=== PATIENT | female | born 1975 | race Caucasian/White ===

== ENCOUNTER → 2018-10-11 | Outpatient (CLI) | payer MEDICAID ==
[2018-10-11 14:42] LABS: EOS # 0.1 (0.04-0.40); EOS % 0.9 % (1.0-5.0); HEMATOCRIT 39.1 % (37.0-47.0); HEMOGLOBIN 12.8 g/dL (12.5-16.0); MEAN CELL VOLUME 96 fl (78-100); MEAN CORPUSCULAR HEMOGLOBIN 31 pg (27-31); MEAN CORPUSCULAR HGB CONC 33 g/dL (33-37); MEAN PLATELET VOLUME 10.9 fl (7.4-10.4); MONO # 0.4 (0.20-0.80); NEU # 3.3 (1.40-6.50); PLATELET COUNT 241 K/mm3 (130-400); RED BLOOD COUNT 4.08 M/mm3 (4.10-5.30); RED CELL DISTRIBUTION WIDTH 13.9 % (11.5-14.5); WHITE BLOOD COUNT 5.8 K/mm3 (4.8-10.8)
[2018-10-11 14:57] LABS: ALBUMIN 4.4 g/dL (3.5-5.0); CALCIUM 9.4 mg/dL (8.4-10.2); POTASSIUM 4.3 mmol/L (3.6-5.0); TOTAL BILIRUBIN 0.5 mg/dL (0.2-1.3); TOTAL PROTEIN 8.7 g/dL (6.3-8.2)
== END ==
LOC: LAB 14:28
PROVIDERS: Family Medicine
DX: N18.9 Chronic kidney disease, unspecified (principal); D63.1 Anemia in chronic kidney disease; E78.5 Hyperlipidemia, unspecified; E03.9 Hypothyroidism, unspecified

== ENCOUNTER → 2018-10-21 | Outpatient (CLI) | payer MEDICAID ==
[2018-11-02 09:50] LABS: CD4 T-CELL COUNT 10.9 % (29.0-59.0)
== END ==
LOC: LAB 09:50
PROVIDERS: Internal Medicine Infectious Disease
DX: B20 Human immunodeficiency virus [HIV] disease (principal)

== ENCOUNTER → 2018-10-27 | Outpatient (CLI) | payer MEDICAID ==
[2018-10-27 10:29] LABS: EOS # 0.1 (0.04-0.40); EOS % 0.9 % (1.0-5.0); HEMOGLOBIN 11.9 g/dL (12.5-16.0); LYMPH# 1.6 (1.50-4.00); MEAN CELL VOLUME 99 fl (78-100); MEAN CORPUSCULAR HEMOGLOBIN 32 pg (27-31); MEAN CORPUSCULAR HGB CONC 32 g/dL (33-37); MEAN PLATELET VOLUME 10.4 fl (7.4-10.4); MONO # 0.5 (0.20-0.80); NEU # 3.1 (1.40-6.50); PLATELET COUNT 227 K/mm3 (130-400); RED BLOOD COUNT 3.74 M/mm3 (4.10-5.30); RED CELL DISTRIBUTION WIDTH 14.4 % (11.5-14.5); WHITE BLOOD COUNT 5.3 K/mm3 (4.8-10.8)
[2018-10-27 11:20] LABS: CALCIUM 9.4 mg/dL (8.4-10.2); POTASSIUM 4.3 mmol/L (3.6-5.0)
[2018-10-27 11:55] LABS: URINE APPEARANCE HAZY; URINE BILIRUBIN NEGATIVE (NEGATIVE); URINE BLOOD NEGATIVE (NEGATIVE); URINE COLOR YELLOW; URINE GLUCOSE NEGATIVE (NEGATIVE); URINE KETONE NEGATIVE (NEGATIVE); URINE LEUKOCYTE ESTERASE NEGATIVE (NEGATIVE); URINE MUCUS PRESENT (NOT PRESENT); URINE NITRATE NEGATIVE (NEGATIVE); URINE PROTEIN(semi-quant) TRACE mg/dL (NEGATIVE); URINE UROBILINOGEN NORMAL (NORMAL)
[2018-10-28 02:35] LABS: CREATININE OTHER SOURCE 211 mg/dL (())
== END ==
LOC: LAB 10:13
PROVIDERS: Internal Medicine
DX: N18.9 Chronic kidney disease, unspecified (principal); E66.9 Obesity, unspecified

== ENCOUNTER → 2018-10-28 | Outpatient (CLI) | payer MEDICAID | LOC: RAD 10:13 | DX: N18.9 Chronic kidney disease, unspecified (principal) ==

== ENCOUNTER → 2018-11-28 | Outpatient (CLI) | payer MEDICAID ==
[2018-11-28 12:45] LABS: CALCIUM 9.2 mg/dL (8.4-10.2); POTASSIUM 4.1 mmol/L (3.6-5.0)
[2018-11-28 23:17] LABS: CREATININE OTHER SOURCE 37 mg/dL (())
== END ==
LOC: LAB 10:44
PROVIDERS: Internal Medicine
DX: I12.9 Hypertensive chronic kidney disease with stage 1 through stage 4 chronic kidney disease, or unspecified chronic kidney disease (principal); F17.200 Nicotine dependence, unspecified, uncomplicated; N18.3 Chronic kidney disease, stage 3 (moderate); Z21 Asymptomatic human immunodeficiency virus [HIV] infection status

== ENCOUNTER → 2019-01-09 | Outpatient (CLI) | payer MEDICAID ==
[2019-01-10 14:03] LABS: CD4 T-CELL COUNT 11.3 % (29.0-59.0)
== END ==
LOC: LAB 10:31
PROVIDERS: Internal Medicine Infectious Disease
DX: B20 Human immunodeficiency virus [HIV] disease (principal)

== ENCOUNTER → 2019-01-11 | Outpatient (CLI) | payer MEDICAID | LOC: LAB 11:34 | DX: B20 Human immunodeficiency virus [HIV] disease (principal) ==

== ENCOUNTER → 2019-02-08 | Outpatient (CLI) | payer MEDICARE, MEDICAID ==
[2019-02-08 09:48] LABS: BASO # 0.1 (0.02-0.10); EOS # 0.1 (0.04-0.40); EOS % 1.4 % (1.0-5.0); HEMATOCRIT 37.8 % (37.0-47.0); LYMPH# 1.9 (1.50-4.00); MEAN CELL VOLUME 104 fl (78-100); MEAN CORPUSCULAR HEMOGLOBIN 33 pg (27-31); MEAN CORPUSCULAR HGB CONC 32 g/dL (33-37); MEAN PLATELET VOLUME 10.8 fl (7.4-10.4); MONO # 0.5 (0.20-0.80); NEU # 3.2 (1.40-6.50); PLATELET COUNT 223 K/mm3 (130-400); RED BLOOD COUNT 3.63 M/mm3 (4.10-5.30); RED CELL DISTRIBUTION WIDTH 13.6 % (11.5-14.5); WHITE BLOOD COUNT 5.8 K/mm3 (4.8-10.8)
[2019-02-08 10:01] LABS: ALBUMIN 4.1 g/dL (3.5-5.0); CALCIUM 9.2 mg/dL (8.4-10.2); POTASSIUM 3.9 mmol/L (3.6-5.0); TOTAL BILIRUBIN 0.5 mg/dL (0.2-1.3); TOTAL PROTEIN 8.1 g/dL (6.3-8.2)
== END ==
LOC: LAB 09:36
PROVIDERS: Family Medicine
DX: D63.1 Anemia in chronic kidney disease (principal); R73.9 Hyperglycemia, unspecified; E78.5 Hyperlipidemia, unspecified; E07.9 Disorder of thyroid, unspecified

== ENCOUNTER → 2019-03-13 | Outpatient (CLI) | payer MEDICARE, MEDICAID ==
[2019-03-13 14:46] LABS: URINE APPEARANCE CLOUDY; URINE BILIRUBIN NEGATIVE (NEGATIVE); URINE BLOOD NEGATIVE (NEGATIVE); URINE COLOR YELLOW; URINE GLUCOSE NEGATIVE (NEGATIVE); URINE KETONE NEGATIVE (NEGATIVE); URINE LEUKOCYTE ESTERASE NEGATIVE (NEGATIVE); URINE NITRATE NEGATIVE (NEGATIVE); URINE PROTEIN(semi-quant) TRACE mg/dL (NEGATIVE); URINE UROBILINOGEN NORMAL (NORMAL)
== END ==
LOC: LAB 14:16
PROVIDERS: Nurse Practitioner
DX: R30.0 Dysuria (principal)

== ENCOUNTER → 2019-03-17 | Outpatient (CLI) | payer MEDICARE, MEDICAID | LOC: LAB 16:05 | DX: N39.0 Urinary tract infection, site not specified (principal); R10.9 Unspecified abdominal pain ==

== ENCOUNTER → 2019-05-11 | Outpatient (CLI) | payer MEDICARE, MEDICAID | LOC: RAD 09:45 | DX: M54.5 Low back pain (principal); R10.9 Unspecified abdominal pain; N39.0 Urinary tract infection, site not specified ==

== ENCOUNTER → 2019-05-22 | Outpatient (CLI) | payer MEDICARE, MEDICAID ==
[2019-05-22 14:40] LABS: HEMATOCRIT 37.3 % (37.0-47.0); HEMOGLOBIN 12.2 g/dL (12.5-16.0); MEAN PLATELET VOLUME 10.4 fl (7.4-10.4); RED BLOOD COUNT 3.65 M/mm3 (4.10-5.30); RED CELL DISTRIBUTION WIDTH 12.4 % (11.5-14.5); WHITE BLOOD COUNT 7.6 K/mm3 (4.8-10.8)
[2019-05-22 14:52] LABS: POTASSIUM 3.5 mmol/L (3.5-5.1)
[2019-05-22 14:53] LABS: CALCIUM 9.2 mg/dL (8.3-10.5)
== END ==
LOC: LAB 14:28
PROVIDERS: Internal Medicine
DX: N18.3 Chronic kidney disease, stage 3 (moderate) (principal); I12.9 Hypertensive chronic kidney disease with stage 1 through stage 4 chronic kidney disease, or unspecified chronic kidney disease; E66.09 Other obesity due to excess calories

== ENCOUNTER → 2019-06-06 | Outpatient (CLI) | payer MEDICARE, MEDICAID ==
[2019-06-06 10:33] LABS: POTASSIUM 3.7 mmol/L (3.5-5.1)
[2019-06-07 06:12] LABS: CREATININE OTHER SOURCE 211 mg/dL (())
== END ==
LOC: LAB 10:10
PROVIDERS: Internal Medicine Nephrology
DX: I12.9 Hypertensive chronic kidney disease with stage 1 through stage 4 chronic kidney disease, or unspecified chronic kidney disease (principal); N18.3 Chronic kidney disease, stage 3 (moderate)

== ENCOUNTER → 2019-06-23 | Outpatient (CLI) | payer MEDICARE, MEDICAID ==
[2019-06-23 14:48] LABS: URINE APPEARANCE HAZY; URINE BILIRUBIN NEGATIVE (NEGATIVE); URINE BLOOD NEGATIVE (NEGATIVE); URINE COLOR YELLOW; URINE GLUCOSE NEGATIVE (NEGATIVE); URINE KETONE NEGATIVE (NEGATIVE); URINE LEUKOCYTE ESTERASE 1+ (NEGATIVE); URINE NITRATE NEGATIVE (NEGATIVE); URINE PROTEIN(semi-quant) TRACE mg/dL (NEGATIVE); URINE UROBILINOGEN NORMAL (NORMAL)
== END ==
LOC: LAB 14:19
PROVIDERS: Family Medicine
DX: M54.5 Low back pain (principal); R82.90 Unspecified abnormal findings in urine

== ENCOUNTER → 2019-07-25 | Outpatient (CLI) | payer MEDICARE, MEDICAID ==
[2019-07-25 11:53] LABS: HEMATOCRIT 37.7 % (37.0-47.0); HEMOGLOBIN 12.4 g/dL (12.5-16.0); MEAN PLATELET VOLUME 10.3 fl (7.4-10.4); RED BLOOD COUNT 3.56 M/mm3 (4.10-5.30); RED CELL DISTRIBUTION WIDTH 12.8 % (11.5-14.5); WHITE BLOOD COUNT 5.1 K/mm3 (4.8-10.8)
[2019-07-25 12:00] LABS: POTASSIUM 3.4 mmol/L (3.5-5.1)
[2019-07-25 12:01] LABS: CALCIUM 9.4 mg/dL (8.3-10.5)
[2019-07-26 09:34] LABS: CREATININE OTHER SOURCE 154 mg/dL (())
== END ==
LOC: LAB 11:40
PROVIDERS: Internal Medicine Nephrology
DX: I12.9 Hypertensive chronic kidney disease with stage 1 through stage 4 chronic kidney disease, or unspecified chronic kidney disease (principal); N18.3 Chronic kidney disease, stage 3 (moderate)

== ENCOUNTER → 2019-11-20 | Outpatient (CLI) | payer MEDICARE, MEDICAID ==
[2019-11-20 15:15] LABS: POTASSIUM 3.6 mmol/L (3.5-5.1)
== END ==
LOC: LAB 14:55
PROVIDERS: Internal Medicine Nephrology
DX: I12.9 Hypertensive chronic kidney disease with stage 1 through stage 4 chronic kidney disease, or unspecified chronic kidney disease (principal); N18.3 Chronic kidney disease, stage 3 (moderate)

== ENCOUNTER → 2020-05-28 | Outpatient (CLI) | payer MEDICARE, MEDICAID ==
[2020-05-28 14:18] LABS: CALCIUM 8.4 mg/dL (8.3-10.5)
== END ==
LOC: LAB 13:59
PROVIDERS: Internal Medicine Nephrology
DX: I12.9 Hypertensive chronic kidney disease with stage 1 through stage 4 chronic kidney disease, or unspecified chronic kidney disease (principal); N18.3 Chronic kidney disease, stage 3 (moderate)

== ENCOUNTER → 2020-08-13 | Outpatient (CLI) | payer MEDICARE, MEDICAID ==
[2020-08-13 11:57] LABS: EOS # 0.1 (0.04-0.40); EOS % 0.9 % (1.0-5.0); HEMATOCRIT 39.1 % (37.0-47.0); HEMOGLOBIN 12.2 g/dL (12.5-16.0); LYMPH# 1.4 (1.50-4.00); MEAN CELL VOLUME 103 fl (78-100); MEAN CORPUSCULAR HEMOGLOBIN 32 pg (27-31); MEAN CORPUSCULAR HGB CONC 31 g/dL (33-37); MEAN PLATELET VOLUME 11.2 fl (7.4-10.4); MONO # 0.5 (0.20-0.80); NEU # 4.5 (1.40-6.50); PLATELET COUNT 253 K/mm3 (130-400); RED BLOOD COUNT 3.78 M/mm3 (4.10-5.30); RED CELL DISTRIBUTION WIDTH 12.8 % (11.5-14.5); WHITE BLOOD COUNT 6.5 K/mm3 (4.8-10.8)
[2020-08-13 12:36] LABS: POTASSIUM 4.4 mmol/L (3.5-5.1)
[2020-08-13 12:37] LABS: ALBUMIN 3.7 g/dL (3.5-5.0)
[2020-08-13 12:38] LABS: CALCIUM 8.9 mg/dL (8.3-10.5)
[2020-08-13 12:41] LABS: TOTAL BILIRUBIN 0.5 mg/dL (0.2-1.2)
== END ==
LOC: LAB 11:26
PROVIDERS: Physician Assistant
DX: Z00.00 Encounter for general adult medical examination without abnormal findings (principal); Z12.39 Encounter for other screening for malignant neoplasm of breast; B20 Human immunodeficiency virus [HIV] disease; D63.1 Anemia in chronic kidney disease; J45.909 Unspecified asthma, uncomplicated; E78.5 Hyperlipidemia, unspecified; N18.9 Chronic kidney disease, unspecified; R73.9 Hyperglycemia, unspecified; E07.9 Disorder of thyroid, unspecified

== ENCOUNTER → 2020-08-27 | Outpatient (CLI) | payer MEDICARE, MEDICAID | LOC: MAMMO 11:30 | DX: Z00.00 Encounter for general adult medical examination without abnormal findings (principal); Z12.31 Encounter for screening mammogram for malignant neoplasm of breast; B20 Human immunodeficiency virus [HIV] disease; R73.9 Hyperglycemia, unspecified ==

== ENCOUNTER → 2020-09-27 | Outpatient (CLI) | payer MEDICARE, MEDICAID | LOC: LAB 13:15 | DX: J02.9 Acute pharyngitis, unspecified (principal); Z20.828 Contact with and (suspected) exposure to other viral communicable diseases ==

== ENCOUNTER → 2020-10-01 | Outpatient (CLI) | payer MEDICARE, MEDICAID ==
[2020-10-01 14:26] LABS: EOS # 0.1 (0.04-0.40); EOS % 1.2 % (1.0-5.0); HEMATOCRIT 41.1 % (37.0-47.0); HEMOGLOBIN 13.4 g/dL (12.5-16.0); LYMPH# 1.8 (1.50-4.00); MEAN CELL VOLUME 100 fl (78-100); MEAN CORPUSCULAR HEMOGLOBIN 33 pg (27-31); MEAN CORPUSCULAR HGB CONC 33 g/dL (33-37); MEAN PLATELET VOLUME 10.8 fl (7.4-10.4); MONO # 0.6 (0.20-0.80); NEU # 3.9 (1.40-6.50); PLATELET COUNT 279 K/mm3 (130-400); RED BLOOD COUNT 4.12 M/mm3 (4.10-5.30); RED CELL DISTRIBUTION WIDTH 12.2 % (11.5-14.5); WHITE BLOOD COUNT 6.4 K/mm3 (4.8-10.8)
[2020-10-01 14:36] LABS: ALBUMIN 3.8 g/dL (3.5-5.0); POTASSIUM 4.5 mmol/L (3.5-5.1)
[2020-10-01 14:37] LABS: CALCIUM 8.9 mg/dL (8.3-10.5)
[2020-10-01 14:38] LABS: TOTAL PROTEIN 7.8 g/dL (6.4-8.3)
[2020-10-01 14:40] LABS: TOTAL BILIRUBIN 0.2 mg/dL (0.2-1.2)
== END ==
LOC: LAB 14:09
PROVIDERS: Physician Assistant
DX: N39.0 Urinary tract infection, site not specified (principal)

== ENCOUNTER → 2020-11-05 | Outpatient (CLI) | payer MEDICARE, MEDICAID ==
[2020-11-05 11:30] LABS: POTASSIUM 4.1 mmol/L (3.5-5.1)
[2020-11-05 11:31] LABS: CALCIUM 8.6 mg/dL (8.3-10.5)
== END ==
LOC: LAB 11:05
PROVIDERS: Internal Medicine Nephrology
DX: N18.30 Chronic kidney disease, stage 3 unspecified (principal)

== ENCOUNTER → 2020-11-12 | Outpatient (CLI) | payer MEDICARE, MEDICAID | LOC: LAB 11:31 | PROVIDERS: Urology | DX: R31.0 Gross hematuria (principal) ==

== ENCOUNTER → 2021-01-14 | Outpatient (CLI) | payer MEDICARE ==
[2021-01-14 12:47] LABS: CALCIUM 9.3 mg/dL (8.3-10.5); POTASSIUM 4.9 mmol/L (3.5-5.1); TOTAL BILIRUBIN 0.4 mg/dL (0.2-1.2); TOTAL PROTEIN 7.6 g/dL (6.4-8.3)
[2021-01-14 12:49] LABS: BASO # 0.1 (0.02-0.10); EOS % 0.7 % (1.0-5.0); HEMATOCRIT 40.4 % (37.0-47.0); HEMOGLOBIN 13.2 g/dL (12.5-16.0); LYMPH# 1.5 (1.50-4.00); MEAN CELL VOLUME 99 fl (78-100); MEAN CORPUSCULAR HEMOGLOBIN 32 pg (27-31); MEAN CORPUSCULAR HGB CONC 33 g/dL (33-37); MEAN PLATELET VOLUME 11.1 fl (7.4-10.4); MONO # 0.5 (0.20-0.80); NEU # 3.6 (1.40-6.50); PLATELET COUNT 244 K/mm3 (130-400); RED BLOOD COUNT 4.09 M/mm3 (4.10-5.30); RED CELL DISTRIBUTION WIDTH 12.8 % (11.5-14.5); WHITE BLOOD COUNT 5.7 K/mm3 (4.8-10.8)
== END ==
LOC: LAB 11:47
PROVIDERS: Physician Assistant
DX: K90.9 Intestinal malabsorption, unspecified (principal); E78.5 Hyperlipidemia, unspecified; I10 Essential (primary) hypertension

== ENCOUNTER → 2021-03-11 | Outpatient (CLI) | payer MEDICARE ==
[2021-03-11 13:52] LABS: BASO # 0.05 (0.02-0.10); EOS # 0.09 (0.04-0.40); EOS % 0.9 % (1.0-5.0); HEMOGLOBIN 14.5 g/dL (12.5-16.0); LYMPH# 2.14 (1.50-4.00); MEAN CELL VOLUME 99 fl (78-100); MEAN CORPUSCULAR HEMOGLOBIN 33 pg (27-31); MEAN CORPUSCULAR HGB CONC 33 g/dL (33-37); MEAN PLATELET VOLUME 10.3 fl (7.4-10.4); MONO # 0.81 (0.20-0.80); PLATELET COUNT 273 K/mm3 (130-400); RED BLOOD COUNT 4.45 M/mm3 (4.10-5.30)
[2021-03-11 14:04] LABS: ALBUMIN 4.2 g/dL (3.5-5.0); POTASSIUM 4.4 mmol/L (3.5-5.1); SODIUM 139 mmol/L (136-145)
[2021-03-11 14:06] LABS: CALCIUM 9.3 mg/dL (8.3-10.5)
[2021-03-11 14:07] LABS: GLUCOSE 100 mg/dL (65-105); TOTAL PROTEIN 7.9 g/dL (6.4-8.3)
[2021-03-11 14:08] LABS: CARBON DIOXIDE 25 mmol/L (22-29)
[2021-03-11 14:09] LABS: TOTAL BILIRUBIN 0.9 mg/dL (0.2-1.2)
[2021-03-11 14:12] LABS: AST-SGOT 13 U/L (5-34)
[2021-03-11 14:13] LABS: ALT/SGPT 21 U/L (0-55)
[2021-03-11 14:23] LABS: TROPONIN-I < 0.03 ng/mL (<0.030)
[2021-03-11 14:40] LABS: D-DIMER 0.36 mg/L FEU (0.15-0.50)
[2021-03-11 22:26] LABS: FOLLICLE STIMULATING HORMONE 22.3 mIU/mL (()); LUTENIZING HORMONE 38.6 mIU/mL (()); PROGESTERONE 0.3 ng/mL (())
== END ==
LOC: AMSURD 13:33
PROVIDERS: Physician Assistant
DX: K90.9 Intestinal malabsorption, unspecified (principal); N95.1 Menopausal and female climacteric states; R07.9 Chest pain, unspecified

== ENCOUNTER → 2021-05-13 | Outpatient (CLI) | payer MEDICARE ==
[2021-05-13 14:52] LABS: POTASSIUM 4.5 mmol/L (3.5-5.1)
[2021-05-13 14:53] LABS: CALCIUM 9.2 mg/dL (8.3-10.5)
[2021-05-13 22:56] LABS: CREATININE OTHER SOURCE 45 mg/dL (())
== END ==
LOC: LAB 14:36
PROVIDERS: Internal Medicine Nephrology
DX: I12.9 Hypertensive chronic kidney disease with stage 1 through stage 4 chronic kidney disease, or unspecified chronic kidney disease (principal); N18.32 Chronic kidney disease, stage 3b

== ENCOUNTER → 2021-07-01 | Outpatient (CLI) | payer MEDICARE ==
[2021-07-01 09:03] LABS: BASO # 0.04 (0.02-0.10); EOS # 0.04 (0.04-0.40); EOS % 0.7 % (1.0-5.0); HEMATOCRIT 40.5 % (37.0-47.0); HEMOGLOBIN 13.4 g/dL (12.5-16.0); LYMPH# 1.77 (1.50-4.00); MEAN CELL VOLUME 100 fl (78-100); MEAN CORPUSCULAR HEMOGLOBIN 33 pg (27-31); MEAN CORPUSCULAR HGB CONC 33 g/dL (33-37); MEAN PLATELET VOLUME 10.5 fl (7.4-10.4); NEU # 3.12 (1.40-6.50); PLATELET COUNT 250 K/mm3 (130-400); RED BLOOD COUNT 4.07 M/mm3 (4.10-5.30); RED CELL DISTRIBUTION WIDTH 11.7 % (11.5-14.5); WHITE BLOOD COUNT 5.5 K/mm3 (4.8-10.8)
[2021-07-01 09:12] LABS: ALBUMIN 3.7 g/dL (3.5-5.0); POTASSIUM 4.5 mmol/L (3.5-5.1)
[2021-07-01 09:13] LABS: CALCIUM 9.4 mg/dL (8.3-10.5)
[2021-07-01 09:15] LABS: TOTAL PROTEIN 7.2 g/dL (6.4-8.3)
[2021-07-01 09:16] LABS: TOTAL BILIRUBIN 0.5 mg/dL (0.2-1.2)
== END ==
LOC: LAB 08:42
PROVIDERS: Physician Assistant
DX: B99.9 Unspecified infectious disease (principal); Z83.3 Family history of diabetes mellitus

== ENCOUNTER → 2021-07-23 | Outpatient (CLI) | payer MEDICARE | LOC: LAB 07:55 | DX: Z20.822 Contact with and (suspected) exposure to COVID-19 (principal) ==

== ENCOUNTER → 2021-08-20 | Outpatient (CLI) | payer MEDICARE | LOC: RAD 10:34 | DX: M79.644 Pain in right finger(s) (principal) ==

== ENCOUNTER → 2021-09-16 | Outpatient (CLI) | payer MEDICARE ==
[2021-09-16 11:59] LABS: POTASSIUM 4.9 mmol/L (3.5-5.1)
[2021-09-16 12:00] LABS: CALCIUM 9.4 mg/dL (8.3-10.5)
== END ==
LOC: LAB 11:37
PROVIDERS: Internal Medicine Nephrology
DX: N18.32 Chronic kidney disease, stage 3b (principal)

== ENCOUNTER → 2021-10-13 | Day surgery (SDC) | payer MEDICARE | LOC: MSO 07:08 | DX: K21.00 Gastro-esophageal reflux disease with esophagitis, without bleeding (principal); N18.30 Chronic kidney disease, stage 3 unspecified; I25.10 Atherosclerotic heart disease of native coronary artery without angina pectoris; Z21 Asymptomatic human immunodeficiency virus [HIV] infection status | CPT/HCPCS: 00731; J2704; J7120 ==

== ENCOUNTER → 2021-10-23 | Outpatient (CLI) | payer MEDICARE | LOC: RAD 12:19 | DX: K22.2 Esophageal obstruction (principal); K21.9 Gastro-esophageal reflux disease without esophagitis ==

== ENCOUNTER → 2021-11-22 | Outpatient (CLI) | payer MEDICARE | LOC: LAB 11:09 | DX: U07.1 COVID-19 (principal) ==

== ENCOUNTER → 2021-11-25 | Outpatient (CLI) | payer MEDICARE ==
[2021-11-25] VITALS (7 sets, daily range): BP systolic 121–135; BP diastolic 61–86
[~2021-11-25] VITALS: Ht 175.3 cm; Wt 113.6 kg
== END ==
LOC: AMSURD 13:06
DX: U07.1 COVID-19 (principal); J98.4 Other disorders of lung
CPT/HCPCS: M0247; Q0247

== ENCOUNTER → 2022-02-02 | Outpatient (CLI) | payer MEDICARE | LOC: RAD 07:36 | DX: M25.561 Pain in right knee (principal) ==

== ENCOUNTER → 2022-02-11 | Outpatient (CLI) | payer MEDICARE ==
[2022-02-11 07:49] LABS: BASO # 0.05 K/mm3 (0.02-0.10); EOS # 0.06 K/mm3 (0.04-0.40); HEMATOCRIT 37.3 % (37.0-47.0); HEMOGLOBIN 12.2 g/dL (12.5-16.0); LYMPH# 2.03 K/mm3 (1.50-4.00); MEAN CELL VOLUME 95 fl (78-100); MEAN CORPUSCULAR HEMOGLOBIN 31 pg (27-31); MEAN CORPUSCULAR HGB CONC 33 g/dL (33-37); MEAN PLATELET VOLUME 10.8 fl (7.4-10.4); MONO # 0.53 K/mm3 (0.20-0.80); NEU # 3.05 K/mm3 (1.40-6.50); PLATELET COUNT 221 K/mm3 (130-400); RED BLOOD COUNT 3.92 M/mm3 (4.10-5.30); WHITE BLOOD COUNT 5.8 K/mm3 (4.8-10.8)
[2022-02-11 07:53] LABS: ALBUMIN 3.6 g/dL (3.5-5.0); POTASSIUM 4.2 mmol/L (3.5-5.1)
[2022-02-11 07:54] LABS: CALCIUM 9.2 mg/dL (8.3-10.5)
[2022-02-11 07:56] LABS: TOTAL PROTEIN 7.6 g/dL (6.4-8.3)
[2022-02-11 07:58] LABS: TOTAL BILIRUBIN 0.4 mg/dL (0.2-1.2)
== END ==
LOC: LAB 07:27
PROVIDERS: Physician Assistant
DX: Z00.00 Encounter for general adult medical examination without abnormal findings (principal); K90.9 Intestinal malabsorption, unspecified; A83 Mosquito-borne viral encephalitis; D64.9 Anemia, unspecified; J45.909 Unspecified asthma, uncomplicated; F31.9 Bipolar disorder, unspecified; N18.9 Chronic kidney disease, unspecified; E78.5 Hyperlipidemia, unspecified; K21.9 Gastro-esophageal reflux disease without esophagitis; M25.561 Pain in right knee; Z83.3 Family history of diabetes mellitus; Z21 Asymptomatic human immunodeficiency virus [HIV] infection status; Z82.49 Family history of ischemic heart disease and other diseases of the circulatory system

== ENCOUNTER → 2022-05-20 | Outpatient (CLI) | payer MEDICARE | LOC: LAB 12:42 | DX: Z20.822 Contact with and (suspected) exposure to COVID-19 (principal) ==

== ENCOUNTER → 2022-06-10 | Outpatient (CLI) | payer MEDICARE ==
[2022-06-10 15:26] LABS: ALBUMIN 4.1 g/dL (3.5-5.0)
[2022-06-10 15:28] LABS: TOTAL PROTEIN 8.2 g/dL (6.4-8.3)
[2022-06-10 15:30] LABS: TOTAL BILIRUBIN 0.4 mg/dL (0.2-1.2)
[2022-06-10 15:34] LABS: DIRECT BILIRUBIN 0.1 mg/dL (0.0-0.5)
== END ==
LOC: LAB 14:45
PROVIDERS: Physician Assistant
DX: N18.9 Chronic kidney disease, unspecified (principal); D64.9 Anemia, unspecified; R06.00 Dyspnea, unspecified; L30.9 Dermatitis, unspecified; G25.81 Restless legs syndrome; E78.5 Hyperlipidemia, unspecified; K90.9 Intestinal malabsorption, unspecified

== ENCOUNTER → 2022-06-18 | Outpatient (CLI) | payer MEDICARE ==
[2022-06-18 08:37] LABS: POTASSIUM 4.2 mmol/L (3.5-5.1)
[2022-06-18 08:38] LABS: CALCIUM 9.1 mg/dL (8.3-10.5)
== END ==
LOC: LAB 06-17 15:31
PROVIDERS: Internal Medicine Nephrology
DX: I12.9 Hypertensive chronic kidney disease with stage 1 through stage 4 chronic kidney disease, or unspecified chronic kidney disease (principal); N18.32 Chronic kidney disease, stage 3b; N17.8 Other acute kidney failure

== ENCOUNTER → 2022-07-03 | Outpatient (CLI) | payer MEDICARE | LOC: LAB 09:30 | DX: R06.02 Shortness of breath (principal); E78.5 Hyperlipidemia, unspecified ==

== ENCOUNTER → 2022-11-12 | Outpatient (CLI) | payer MEDICARE | LOC: LAB 12:07 | DX: Z20.822 Contact with and (suspected) exposure to COVID-19 (principal) ==

== ENCOUNTER 2022-12-23 08:00 | Outpatient (RCR) | payer MEDICARE | END 2023-01-22 | disposition home or self-care (01) | LOC: OT | DX: M67.823 Other specified disorders of tendon, right elbow (principal) ==

== ENCOUNTER → 2023-11-25 | Outpatient (CLI) | payer MEDICARE ==
[2023-11-26 12:28] LABS: ANA SCREEN with REFLEX Negative (Negative)
[2023-11-27 19:10] LABS: ANGIOTENSIN CONVERTING ENZYME 70 U/L (14-82)
== END ==
LOC: LAB 11:10
PROVIDERS: Physician Assistant
DX: R06.02 Shortness of breath (principal)

== ENCOUNTER → 2024-04-21 | Outpatient (CLI) | payer MEDICARE | LOC: LAB 09:16 | DX: E78.5 Hyperlipidemia, unspecified (principal) ==

== ENCOUNTER → 2024-05-10 | Outpatient (REF) | payer MEDICARE, MEDICAID | LOC: LAB 14:10 | DX: Z20.822 Contact with and (suspected) exposure to COVID-19 (principal) ==

== ENCOUNTER → 2024-06-06 | Outpatient (CLI) | payer MEDICARE, MEDICAID ==
[2024-06-06 14:29] LABS: ALBUMIN 3.9 g/dL (3.5-5.0)
[2024-06-06 14:30] LABS: CALCIUM 9.1 mg/dL (8.3-10.5)
[2024-06-06 14:32] LABS: TOTAL PROTEIN 6.9 g/dL (6.4-8.3)
[2024-06-06 14:33] LABS: TOTAL BILIRUBIN 0.3 mg/dL (0.2-1.2)
[2024-06-06 14:37] LABS: DIRECT BILIRUBIN 0.1 mg/dL (0.0-0.5)
== END ==
LOC: LAB 14:03
PROVIDERS: Internal Medicine Interventional Cardiology
DX: E78.5 Hyperlipidemia, unspecified (principal); I12.9 Hypertensive chronic kidney disease with stage 1 through stage 4 chronic kidney disease, or unspecified chronic kidney disease; N18.32 Chronic kidney disease, stage 3b

== ENCOUNTER → 2024-08-23 | Outpatient (CLI) | payer MEDICARE, MEDICAID | LOC: MAMMO 10:34 | DX: Z12.39 Encounter for other screening for malignant neoplasm of breast (principal); Z12.31 Encounter for screening mammogram for malignant neoplasm of breast ==

== ENCOUNTER → 2024-11-07 | Outpatient (CLI) | payer MEDICARE | LOC: RAD 14:50 | DX: M51.360 Other intervertebral disc degeneration, lumbar region with discogenic back pain only (principal) ==

== ENCOUNTER → 2024-11-28 | Outpatient (CLI) | payer MEDICARE | LOC: RAD 13:49 | DX: M47.814 Spondylosis without myelopathy or radiculopathy, thoracic region (principal) ==

== ENCOUNTER → 2024-11-29 | Outpatient (CLI) | payer MEDICARE ==
[2024-11-29 08:52] LABS: BASO # 0.01 K/mm3 (0.02-0.10); EOS # 0.01 K/mm3 (0.04-0.40); EOS % 0.1 % (1.0-5.0); HEMOGLOBIN 13.5 g/dL (12.5-16.0); LYMPH# 2.33 K/mm3 (1.50-4.00); MEAN CELL VOLUME 99 fl (78-100); MEAN CORPUSCULAR HEMOGLOBIN 33 pg (27-31); MEAN CORPUSCULAR HGB CONC 33 g/dL (33-37); MEAN PLATELET VOLUME 10.5 fl (7.4-10.4); MONO # 0.53 K/mm3 (0.20-0.80); NEU # 7.55 K/mm3 (1.40-6.50); PLATELET COUNT 275 K/mm3 (130-400); RED BLOOD COUNT 4.14 M/mm3 (4.10-5.30); WHITE BLOOD COUNT 10.5 K/mm3 (4.8-10.8)
[2024-11-29 08:58] LABS: ALBUMIN 3.8 g/dL (3.5-5.0)
[2024-11-29 08:59] LABS: CALCIUM 9.4 mg/dL (8.3-10.5)
[2024-11-29 09:00] LABS: TOTAL PROTEIN 7.5 g/dL (6.4-8.3)
[2024-11-29 09:02] LABS: TOTAL BILIRUBIN 0.2 mg/dL (0.2-1.2)
== END ==
LOC: LAB 08:30
PROVIDERS: Physician Assistant
DX: K90.9 Intestinal malabsorption, unspecified (principal); E78.5 Hyperlipidemia, unspecified

== ENCOUNTER → 2025-01-09 | Outpatient (CLI) | payer MEDICARE, MEDICAID | LOC: RAD 14:41 | DX: M54.6 Pain in thoracic spine (principal) ==